=== PATIENT | female | born 1960 | race Caucasian/White ===

== ENCOUNTER 2018-08-27 06:32 | Day surgery (SDC) | payer BC ==
[2018-08-20 09:39] LABS: HEMATOCRIT 41.3 % (36.0-47.0); HEMOGLOBIN 14.3 g/dL (12.0-15.5); MEAN CORPUSCULAR HEMOGLOBIN 32.1 pg (27.0-33.4); MEAN CORPUSCULAR HGB CONC 34.6 g/dL (32.0-36.0); MEAN CORPUSCULAR VOLUME 93 fl (80-97); PLATELET COUNT 277 10^3/uL (150-450); RED BLOOD COUNT 4.44 10^6/uL (3.72-5.28); RED CELL DISTRIBUTION WIDTH 13.5 % (11.5-14.0); WHITE BLOOD COUNT 9.7 10^3/uL (4.0-10.5)
--- NOTE | 2018-08-21 11:01 | EKG REPORT ---
SEVERITY:- NORMAL ECG - SINUS RHYTHM : Confirmed by: Jennifer Doran 21-Aug-2018 11:00:39
[~2018-08-27 06:32] MED LIST: LACTATED RINGERS 1000 ML IV PRN; LIDOCAINE 0.5% INJ-PF (5 MG/ML) 50 ML SDV SUBCUT PRN
[2018-08-27] MEDS ORDERED: DEXMEDETOMIDINE INJ 80 MCG/20 ML VIAL IV ONE (06:59)
[2018-08-27] MEDS ORDERED: PROMETHAZINE HCL INJ 25 MG/1 ML VIAL ONE (08:34)
[2018-08-27] MEDS ORDERED: MIDAZOLAM 2 MG/2 ML INJ ONE (08:34)
[2018-08-27] MEDS ORDERED: FENTANYL CITRATE INJ/PF 100 MCG/2 ML AMPUL ONE (08:34)
[2018-08-27] MEDS ORDERED: PROPOFOL INJ 200 MG/20 ML VIAL IV ONE (08:35)
[2018-08-27] MEDS ORDERED: ACETAMINOPHEN 1,000 MG/100 ML RTUPB IV ONE (08:35)
[2018-08-27] MEDS ORDERED: HYDROMORPHONE HCL INJ/PF 2 MG/ML AMPULE ONE (08:47)
[2018-08-27] MEDS ORDERED: COCAINE HCL 4% TOPICAL SOLN 4 ML ONE (08:52)
[2018-08-27] MEDS ORDERED: OXYMETAZOLINE HCL 0.05% NASAL SPRAY 15 ML BOTTLE ONE (08:52)
[2018-08-27] MEDS ORDERED: CEFAZOLIN INJ 1 GM VIAL ONE (09:07)
[2018-08-27] MEDS ORDERED: ONDANSETRON HCL INJ/PF 4 MG/2 ML SDV IV PRN ×2 (09:25→10:54)
[2018-08-27] MEDS ORDERED: MORPHINE SULFATE 10 MG/ML INJ IV PRN (09:25)
[2018-08-27] MEDS ORDERED: MEPERIDINE HCL/PF INJ 25 MG/1 ML DISP.SYRIN IV PRN (09:25)
[2018-08-27] MEDS ORDERED: DIPHENHYDRAMINE HCL 50 MG/ML VIAL IV PRN (09:25)
[2018-08-27] MEDS ORDERED: OXYCODONE-ACETAMINOPHEN 5-325 MG TABLET PO PRN ×2 (09:25)
[2018-08-27] MEDS ORDERED: PROMETHAZINE HCL INJ 25 MG/1 ML VIAL IV PRN ×2 (09:25)
[2018-08-27] MEDS ORDERED: FENTANYL CITRATE INJ/PF 100 MCG/2 ML AMPUL IV PRN ×3 (09:25)
[2018-08-27] MEDS ORDERED: RACEPINEPHRINE HCL 2.25% NEB 0.5 ML AMPUL NEB ONE (10:15)
[2018-08-27] MEDS ORDERED: DEXAMETHASONE SOD PHOS INJ 10 MG/1 ML VIAL ONE (10:16)
[2018-08-27] MEDS ORDERED: DEXAMETHASONE SOD PHOSPHATE INJ 4 MG/1 ML VIAL ONE ×2 (10:20→12:54)
[2018-08-27] MEDS ORDERED: HYDROCODONE/ACETAMINOPHEN 5-325 MG TABLET PO PRN (10:53)
--- NOTE | 2018-08-27 11:24 | OPERATIVE REPORT E ---
Operative Report NAME: JUAN CARLOS GARCIA : 1960 AGE: 58Y DATE OF SURGERY: 08/27/2018 ROOM: HISTORY: A 58-year-old female with a history of a left true vocal cord cyst. Presents today for a micro direct laryngoscopy with excision of that left true vocal cord cyst. Informed consent was obtained from the patient. PREOPERATIVE DIAGNOSIS: Left true vocal cord cyst. POSTOPERATIVE DIAGNOSIS: Left true vocal cord intracordal cyst. PROCEDURE: 1. Micro direct laryngoscopy 2. Excision of left true vocal cord intracordal cyst. SURGEON: KIMBERLYN HARRIS MD ANESTHESIA: General via endotracheal intubation. DESCRIPTION OF PROCEDURE: After receiving informed consent from the patient she was taken to the operating room, placed supine on the operating room table. After successful induction and intubation by Anesthesia, a Marcus laryngoscope was inserted atraumatically into the laryngeal inlet. The laryngoscope was then suspended. The microscope was brought into the field and the left true vocal cord cyst was identified. A pledge soaked heeled walker 4% cocaine was placed over the true vocal cords. Next, a sickle knife was used to make an incision along the superior surface of the left true vocal cord. Using blunt dissection a micro flap was raised and dissected medially towards the true vocal cord cyst. The intracordal cyst was identified and was freed from surrounding tissues. Next, the cyst was grasped with alligator forceps. Upon grasping with the forceps the cyst ruptured. The contents were suctioned and the cyst wall was removed. We then went back and viewed the area and found normal tissue without evidence of cyst wall remaining. The mucosa and vocal ligament were intact. The micro flap was then placed back into its original position and then a pledget with 4% cocaine was then placed over the true vocal cord. The Marcus laryngoscope was removed. The patient was given back to Anesthesia who successfully extubated the patient, removing the previously placed pledget. The estimated blood loss was minimal. Fluids 400 mL crystalloid. The patient was then transferred to the postanesthesia care unit in stable condition with spontaneous respiration, no complication. DICTATING PHYSICIAN: KIMBERLYN HARRIS M.D. [id number] PHY#: [id number] ID: [id number] JOB#: [id number] ACCT: [id number] cc:KIMBERLYN HARRIS MD > TASHIA
[2018-08-27] MEDS ORDERED: ONDANSETRON HCL INJ/PF 4 MG/2 ML SDV ONE ×2 (12:12→12:54)
[2018-08-27 12:25] VITALS: BP 120/67
[2018-08-27] MEDS ORDERED: ROCURONIUM BROMIDE INJ 50 MG/5 ML VIAL IV ONE (12:54)
[2018-08-27] MEDS ORDERED: KETOROLAC TROMETHAMINE 60 MG/2 ML SDV ONE (12:54)
[2018-08-27] MEDS ORDERED: SUCCINYLCHOLINE CHLORIDE INJ 200 MG/10 ML VIAL ONE (12:54)
== END 2018-08-27 12:10 | disposition home or self-care (01) ==
LOC: OROUT 06:32
PROVIDERS: ATTEND Otolaryngology
DX: J38.3 Other diseases of vocal cords (principal); K21.9 Gastro-esophageal reflux disease without esophagitis; Z79.899 Other long term (current) drug therapy; Z85.828 Personal history of other malignant neoplasm of skin
CPT/HCPCS: 320; 36415; 85027; 93005; 93010; J0131; J0330; J0690; J1100; J1170; J1885; J2250; J2405; J2550; J2704; J3010; J3490